=== PATIENT | female | born 1975 | race Caucasian/White ===

== ENCOUNTER 2018-07-28 06:17 | Day surgery (SDC) | payer BC ==
[2018-07-28 06:55] LABS: ADD MAN DIFF? NO
[2018-07-28 06:57] LABS: WHITE BLOOD COUNT 4.6 10^3/ul (4.8-10.8)
[2018-07-28 06:57] LABS: BASOPHILS % 0.9 % (0.0-2.0); EOSINOPHILS # 0.1 10^3/ul (0.0-0.5); EOSINOPHILS % 1.5 % (0.0-7.0); HEMATOCRIT 37.9 % (37.0-47.0); HEMOGLOBIN 12.4 g/dl (12.0-16.0); LYMPHOCYTES # 1.2 10^3/ul (0.8-2.9); LYMPHOCYTES % 25.9 % (15.0-51.0); MEAN CORPUSCULAR HEMOGLOBIN 29.2 pg (29.0-33.0); MEAN CORPUSCULAR HGB CONC 32.7 g/dl (32.0-37.0); MEAN CORPUSCULAR VOLUME 89.2 fl (82.0-101.0); MEAN PLATELET VOLUME 10.6 fl (7.4-10.4); MONOCYTE # 0.4 10^3/ul (0.3-0.9); MONOCYTES % 8.9 % (0.0-11.0); NEUTROPHIL # 2.9 10^3/ul (1.6-7.5); NEUTROPHILS % 62.6 % (39.0-77.0); PLATELET COUNT 196 10^3/UL (140-415); RED BLOOD COUNT 4.25 10^6/ul (4.20-5.40)
[2018-07-28 07:17] LABS: INR 0.99; PROTIME 13.2 Sec (11.9-14.9)
[2018-07-28 07:18] LABS: PARTIAL THROMBOPLASTIN TIME 28.7 Sec (23.0-35.0)
[2018-07-28 07:20] LABS: ALANINE AMINOTRANSFERASE 19 IU/L (13-69); ALBUMIN 4.1 g/dl (3.3-4.9); ALBUMIN/GLOBULIN RATIO 1.13; ALKALINE PHOSPHATASE 69 IU/L (42-121); ANION GAP 9 (5-13); ASPARTATE AMINO TRANSFERASE 23 IU/L (15-46); BILIRUBIN,INDIRECT 0.5 mg/dl (0-1.1); BILIRUBIN,TOTAL 0.5 mg/dl (0.2-1.3); BLOOD UREA NITROGEN 13 mg/dl (7-20); CALCIUM 8.7 mg/dl (8.4-10.2); CARBON DIOXIDE 27 mmol/L (21-31); CHLORIDE 105 mmol/L (97-110); CREATININE 0.71 mg/dl (0.44-1.00); Estimated GFR > 60 mL/min (>60); GLUCOSE 93 mg/dl (70-220); SODIUM 141 mmol/L (135-144); TOTAL PROTEIN 7.7 g/dl (6.1-8.1)
[2018-07-28] MEDS ORDERED: ONDANSETRON 4 MG INJ (07:55)
[2018-07-28] MEDS ORDERED: MEPERIDINE 100 MG INJ (07:55)
[2018-07-28] MEDS ORDERED: METOCLOPRAMIDE 10 MG INJ (07:55)
[2018-07-28] MEDS ORDERED: PROPOFOL 20 ML (07:55)
[2018-07-28] MEDS ORDERED: LIDOCAINE 2% (SDV) 5 ML INJ (07:55)
[2018-07-28] MEDS ORDERED: CEFAZOLIN 1 GM INJ (07:55)
[2018-07-28] MEDS: CEFAZOLIN 2 GM/50 ML (PMX) 50 ML IVPB (08:44)
[2018-07-28] MEDS ORDERED: MIDAZOLAM 1 MG/ML 2 ML INJ IV (09:00)
[2018-07-28] MEDS ORDERED: ONDANSETRON 4 MG INJ IV (09:00)
[2018-07-28] MEDS ORDERED: FENTAnyl 50 MCG/ML VIAL IV ×3 (09:00)
[2018-07-28] MEDS ORDERED: OXYCODONE/ACETAMINOPHEN (5/325) TAB PO ×2 (09:00)
[2018-07-28] MEDS ORDERED: METOCLOPRAMIDE 10 MG INJ IV (09:00)
[2018-07-28] MEDS ORDERED: DIPHENHYDRAMINE 50 MG INJ IV (09:00)
[2018-07-28] MEDS ORDERED: MEPERIDINE 25 MG INJ IV (09:00)
[2018-07-28] MEDS ORDERED: HYDROmorphONE 1 MG/5 ML IV SYRINGE IV ×3 (09:00)
[2018-07-28] MEDS: BUPIVACAINE 0.25% (MPF) 30 ML INJ (09:18)
[2018-07-28] MEDS: HYDROCODONE/APAP (5/325) TAB PO (09:40)
[2018-07-28] MEDS: SOD CHLORIDE 0.9% 1,000 ML IV (09:44)
== END 2018-07-28 10:54 | disposition home or self-care (01) ==
LOC: SDS 06:17
DX: D22.5 Melanocytic nevi of trunk (principal); E03.9 Hypothyroidism, unspecified
CPT/HCPCS: 14000; 80053; 85025; 85610; 85730; 88307

== ENCOUNTER 2018-10-16 12:56 | Emergency (ER) | payer BC | END 2018-10-16 13:53 | disposition home or self-care (01) | LOC: FTE 13:53 | DX: R21 Rash and other nonspecific skin eruption (principal); E03.9 Hypothyroidism, unspecified | CPT/HCPCS: 99282 ==